=== PATIENT | male | born 1960 | race African-American/Black ===

== ENCOUNTER 2019-04-12 07:01 | Day surgery (SDC) | payer BC ==
[2019-04-12] VITALS (10 sets, daily range): BP systolic 90–128; BP diastolic 52–77
[~2019-04-12] VITALS: Ht 177.8 cm; Wt 94.8 kg
[~2019-04-12 07:01] MED LIST: ALFUZOSIN HCL10 MG PO; AMLODIPINE BESY10 MG ORAL; BENAZEPRIL HCL20 MG ORAL; CARVEDILOL6.25 MG ORAL; HYDROCHLOROTHIA25 MG ORAL
[2019-04-12] MEDS ORDERED: ODEFSEY PO (07:34)
[2019-04-12] MEDS ORDERED: ATORVASTATIN CA20 MG ORAL (07:34)
[2019-04-12] MEDS ORDERED: ACYCLOVIR400 MG ORAL (07:34)
[2019-04-12] MEDS ORDERED: Ropivacaine 5mg/ml Vial 30ml INJ ONE ×2 (08:57→09:51)
[2019-04-12] MEDS ORDERED: EPINEPHrine 1mg/1ml Amp ONE (08:57)
[2019-04-12] MEDS ORDERED: Dexamethasone 4mg/ml vial ONE ×2 (08:57→09:18)
[2019-04-12] MEDS ORDERED: Bupivacaine 0.25% Inj 30ml INJ ONE (08:57)
[2019-04-12] MEDS ORDERED: Acetic Acid 3% Solution 15ml TOPIC ONE ×2 (09:15→09:51)
[2019-04-12] MEDS ORDERED: Propofol 200mg/20ml IV ONE (09:16)
[2019-04-12] MEDS ORDERED: LR 1000ml 1,000 ML IVLG SCH (09:18)
--- NOTE | 2019-04-12 09:18 | Anethesia Preoperative Eval ---
Anesthesia Pre-op PMH/ROS General Date of Evaluation: Apr 12, 2019 Time of Evaluation: 09:26 Anesthesiologist: Mahamed ASA Score: ASA 3 Mallampati Score Class I : Soft palate, uvula, fauces, pillars visible Class II: Soft palate, uvula, fauces visible Class III: Soft palate, base of uvula visible Class IV: Only hard plate visible Mallampati Classification: Class III Surgeon: Tiana Diagnosis: Human Papilloma Virus Surgical Procedure: Anoscopy Anesthesia History: none Family History: no anesthesia problems Allergies: Coded Allergies: No Known Allergies (Unverified , 04/12/19) Medications: see eMAR Patient NPO?: Yes Past Medical History Cardiovascular: Reports: HTN, other - HL Hematology/Immune: Reports: other - HIV Other: obesity - BMI 32 Anesthesia Pre-op Phys. Exam Physician Exam Last Vital Signs Date Time Temp Pulse Resp B/P (MAP) Pulse Ox O2 Delivery O2 Flow Rate FiO2 04/12/19 07:27 97.2 60 18 128/73 99 Room Air Constitutional: NAD Neurologic: CN 2-12 intact Cardiovascular: RRR Respiratory: CTA Gastrointestinal: S/NT/ND Airway Exam Mallampati Score: Class III MO: full ROM: limited Teeth: intact Anesthesia Pre-op A/P Risk Assessment & Plan Assessment: ASA 3 Plan: TIVA, SED Status Change Before Surgery: No Pre-Antibiotics Dru Gram Cefoxitin IV Given Within 1 Hr of Incision: Yes Time Given: 09:46 Andrea Irby MD Apr 12, 2019 09:18
[2019-04-12] MEDS ORDERED: Lidocaine 1% Plain 30 ml INJ ONE (09:20)
[2019-04-12] MEDS ORDERED: cefOXitin 1gm Inj ONE (09:23)
[2019-04-12] MEDS ORDERED: Metoclopramide 10mg/2ml Inj IVP PRN (09:30)
[2019-04-12] MEDS ORDERED: Acetaminophen (Non formulary) 100 ML IV ONE (09:30)
[2019-04-12] MEDS ORDERED: LORazepam Inj 2mg/ml 1ml IV PRN (09:30)
[2019-04-12] MEDS ORDERED: HYDROcodone/Acetamin 7.5/325 tab ORAL PRN (09:30)
[2019-04-12] MEDS ORDERED: Midazolam 2mg/2ml Inj IVP PRN (09:30)
[2019-04-12] MEDS ORDERED: oxyCODONE HCL/Acetaminophen 5/325mg ORAL PRN (09:30)
[2019-04-12] MEDS ORDERED: HYDROcodone/Acetamin 5/325 tab ORAL PRN (09:30)
[2019-04-12] MEDS ORDERED: Atropine Sulfate 0.4mg/ml inj IVP PRN (09:30)
[2019-04-12] MEDS ORDERED: LR 1000ml ONE (09:30)
[2019-04-12] MEDS ORDERED: Ketorolac 30mg Inj IV PRN ×2 (09:30)
[2019-04-12] MEDS ORDERED: fentaNYL 100 mcg/2 mL IV PRN (09:30)
[2019-04-12] MEDS ORDERED: Hydromorphone 0.5mg/0.5ml inj IVP PRN (09:30)
[2019-04-12] MEDS ORDERED: Meperidine 50mg/ml Inj(FOR RIGORS ONLY) IVP PRN (09:30)
[2019-04-12] MEDS ORDERED: DiphenhydrAMINE 50mg/ml Inj IVP PRN (09:30)
[2019-04-12] MEDS ORDERED: Sterile Water Irrig 1000ml IRRIG ONE (09:30)
[2019-04-12] MEDS ORDERED: Labetalol 5mg/ml 20ml vial IV PRN (09:30)
[2019-04-12] MEDS ORDERED: Lidocaine 1% MPF 10mg/ml 5ml ONE (09:32)
[2019-04-12] MEDS ORDERED: Sodium Chloride 10ml vial INJ ONE (09:35)
--- NOTE | 2019-04-12 09:47 | Pre-Procedure Note/Attestation ---
Pre-Procedure Note/Attestation Complete Prior to Procedure Planned Procedure: not applicable Procedure Narrative: High-resolution anosopy with biopsies Indications for Procedure Pre-Operative Diagnosis: HPV Attestation I attest that I discussed the nature of the procedure; its benefits; risks and complications; and alternatives (and the risks and benefits of such alternatives ), prior to the procedure, with the patient (or the patient's legal statement services representative). I attest that, if there was a reasonable possibility of needing a blood transfusion, the patient (or the patient's legal statement services representative) was given the [facility] standardized written summary, pursuant to the Rik Ashlyn Blood Safety Act ([place] Health and Safety Code # 1645, as amended). I attest that I re-evaluated the patient just prior to the surgery and that there has been no change in the patient's H&P, except as documented below: Lucretia Montiel MD Apr 12, 2019 09:47
[2019-04-12] MEDS ORDERED: Dexamethasone 4mg/ml vial INJ ONE (09:51)
[2019-04-12] MEDS ORDERED: NS Irrig 1000ml IRRIG ONE (09:51)
--- NOTE | 2019-04-12 10:06 | Immediate Post-Op Evaluation ---
Immediate Post-Op Evalulation Immediate Post-Op Evalulation Procedure: Anoscopy Date of Evaluation: Apr 12, 2019 Time of Evaluation: 10:37 IV Fluids: 800 LR Blood Products: 0 Estimated Blood Loss: 7 Urinary Output: 0 Blood Pressure Systolic: 92 Blood Pressure Diastolic: 52 Pulse Rate: 62 Respiratory Rate: 16 O2 Sat by Pulse Oximetry: 100 Temperature (Fahrenheit): 97.2 Pain Score (1-10): 2 Nausea: No Vomiting: No Complications 0 Patient Status: awake, reacts, patent, none Hydration Status: adequate Dru Gram Cefoxitin IV Given Within 1 Hr of Incision: Yes Time Given: 09:46 Andrea Irby MD Apr 12, 2019 10:06
--- NOTE | 2019-04-12 10:07 | 48 Hour Post Anesthesia Eval ---
Post Anesthesia Evaluation Procedure: Anoscopy Date of Evaluation: Apr 12, 2019 Time of Evaluation: 12:52 Blood Pressure Systolic: 112 0: 79 Pulse Rate: 65 Respiratory Rate: 18 Temperature (Fahrenheit): 97.4 O2 Sat by Pulse Oximetry: 99 Airway: patent Nausea: No Vomiting: No Pain Intensity: 2 Hydration Status: adequate Cardiopulmonary Status: Stable Mental Status/LOC: patient returned to baseline Follow-up Care/Observations: 0 Post-Anesthesia Complications: 0 Follow-up care needed: ready to discharge Andrea Irby MD Apr 12, 2019 10:07
--- NOTE | 2019-04-12 10:21 | Brief Operative Note ---
Immediate Post Operative Note Operative Note Pre-op Diagnosis: HPV Procedure: High-resolution anocopy with biopsies Post-op Diagnosis: same Post-op Diagnosis: same as pre-op Findings: consistent w/pre-op dx studies Surgeon: Lucretia Montiel MD Anesthesiologist: Andrea Irby MD Anesthesia: moderate sedation Specimen: yes Complications: none Condition: stable Fluids: see anesthesia record Estimated Blood Loss: minimal Drains: none Implant(s) used?: No Lucretia Montiel MD Apr 12, 2019 10:21
--- NOTE | 2019-04-12 19:15 | Operative Note - Dictated ---
DATE OF OPERATION: 04/12/2019 PRE-PROCEDURE DIAGNOSES: History of HIV, HPV, abnormal anal Pap smear. POST-PROCEDURE DIAGNOSES: History of HIV, HPV, abnormal anal Pap smear. PROCEDURE: High-resolution anoscopy with biopsies. SURGEON: Lucretia Montiel M.D. ANESTHESIOLOGIST: Andrea Irby M.D. ANESTHESIA: Propofol sedation with local anesthetic. INDICATION FOR PROCEDURE: The patient is a 59-year-old, male, who was sent to my office by his physician, Dr. Norbert Gutierres for abnormal anal Pap smear. The patient has a long-term history of HIV diagnosed in the . In light of the patient's findings and his increased risk factors, the patient was scheduled for high-resolution anoscopy with biopsies. DESCRIPTION OF PROCEDURE: Upon consent of the patient, the patient was brought to the operating room, placed in the prone heidi-knife position on the operating table. Once adequate sedation was started with propofol drip, the patient's buttocks were prepped and draped in the usual standard surgical fashion. 40 mL of 0.5% ropivacaine with epinephrine mixed with 8 mg of dexamethasone was used as a perianal and pudendal block. A Hill-Godoy retractor was placed into the anal canal and there was noted to be moderately sized internal hemorrhoids circumferentially. Multiple biopsies were taken all 4 quadrants of the perianal region, anal verge, and dentate line. These were all sent to field as separate specimens. The anal canal stained with 3% acetic acid and all areas stained white were electrofulgurated as well. The anal canal was irrigated and hemostasis was confirmed. Sterile dry dressing was used for outer dressing. Sponge, needle, and instrument counts were correct at the end of the case. The patient was awakened from anesthesia, brought to the postanesthesia recovery room in stable condition. ESTIMATED BLOOD LOSS: Less than 5 mL. DRAINS: None. SPECIMEN: Multiple biopsies in all 4 quadrants of the perianal region, anal verge, and dentate line. COMPLICATIONS: None. Lucretia Montiel M.D. DR: SUSSY JOB#: [id number] CC: Lucretia Montiel M.D.; Fax#: [phone] NORBERT GUTIERRES M.D. ; FAX#: [phone] Sudeep Kinney M.D.
== END 2019-04-12 12:05 | disposition home or self-care (01) ==
LOC: SUR 07:01
DX: A63.0 Anogenital (venereal) warts (principal); B20 Human immunodeficiency virus [HIV] disease; I10 Essential (primary) hypertension; E66.9 Obesity, unspecified; Z68.30 Body mass index [BMI] 30.0-30.9, adult
CPT/HCPCS: 46606; J0171; J0694; J1100; J2001; J2250; J2405; J2704; J2795; 94003; 94150